=== PATIENT | male | born 1990 | race American Indian/Alaskan Native ===

== ENCOUNTER 2017-02-18 21:00 | Emergency (ER) | payer BC ==
[2017-02-18 21:14] VITALS: BP 153/90
[2017-02-18] MEDS ORDERED: Adenosine 6 MG/2 ML SDV IVPUSH ONE (21:15)
--- NOTE | 2017-02-18 21:16 | EDM.PDOC ---
ED HPI GENERAL MEDICAL PROBLEM - General Chief Complaint: Cardiovascular Problem Stated Complaint: SOB FAST HEART BEAT Time Seen by Provider: 02/18/17 21:11 Source of Information: Reports: Patient History Limitations: Reports: No Limitations - History of Present Illness INITIAL COMMENTS - FREE TEXT/NARRATIVE: 27-year-old male presents to the ED with sudden onset of initially a feeling of shortness of breath and slight heaviness in his central chest. Then was well aware that his heart was racing and skipping in the 150s. Associated S chest heaviness. No radiation to the back neck arms or shoulders. No previous similar symptoms. He denies regular alcohol use occasional half a beer. Does not take any street drugs. Does use energy drinks took to [employer] so far today. On no diabetic medications or cough syrups or decongestants. Nonsmoker. Takes no medications prescribed from Mildly dizzy and lightheaded. Onset: Today Onset Date: 02/18/17 Onset Time: 18:00 Duration: Hour(s): Location: Reports: Chest (central heaviness and palpitations. ) Quality: Reports: Other Severity: Mild (Heaviness) Improves with: Reports: None Worsens with: Reports: Heat Therapy Context: Reports: Other (Was not doing anything strenuous when symptoms developed). Denies: Activity, Exercise, Lifting, Sick Contact, Trauma Associated Symptoms: Reports: Chest Pain, Shortness of Breath, Weakness (Mild sense of weakness.). 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 [No Known Home Meds] 02/18/17 [History] Social & Family History - Tobacco Use Smoking Status *Q: Never Smoker - Alcohol Use Alcohol Use History: Yes Days Per Week of Alcohol Use: 1 - Recreational Drug Use Recreational Drug Use: No ED ROS GENERAL - Review of Systems Review Of Systems: See Below Constitutional: Reports: No Symptoms HEENT: Reports: No Symptoms Respiratory: Reports: No Symptoms Cardiovascular: Reports: No Symptoms Endocrine: Reports: No Symptoms GI/Abdominal: Reports: No Symptoms : Reports: No Symptoms Musculoskeletal: Reports: No Symptoms Skin: Reports: No Symptoms Neurological: Reports: No Symptoms Psychiatric: Reports: No Symptoms Hematologic/Lymphatic: Reports: No Symptoms Immunologic: Reports: No Symptoms ED EXAM, GENERAL - Physical Exam Exam: See Below Exam Limited By: No Limitations General Appearance: Alert, WD/WN, Anxious, Mild Distress Eye Exam: Bilateral Eye: Normal Inspection Head: Atraumatic, Normocephalic Neck: Normal Inspection, Supple, Non-Tender, Full Range of Motion Respiratory/Chest: No Respiratory Distress, Lungs Clear, Normal Breath Sounds, No Accessory Muscle Use, Chest Non-Tender Cardiovascular: Normal Peripheral Pulses, No Edema, No Gallop, No JVD, No Murmur , Tachycardia (Rate is around 150s.) Peripheral Pulses: 2+: Posterior Tibial (L), Posterior Tibial (R), Dorsalis Pedis (L), Dorsalis Pedis (R) GI/Abdominal: Normal Bowel Sounds, Soft, Non-Tender, No Organomegaly, Other (Male) Exam: No Hernia (Obese) Extremities: Normal Inspection, Normal Range of Motion, Non-Tender, No Pedal Edema, Normal Capillary Refill Neurological: Alert, Oriented, CN II-XII Intact, Normal Cognition, Normal Gait, Normal Reflexes, No Motor/Sensory Deficits Psychiatric: Normal Affect, Normal Mood Skin Exam: Warm, Dry, Intact, Normal Color, No Rash EKG INTERPRETATION EKG Date: 02/18/17 Time: 21:20 Rhythm: A-Fib (He has a narrow complex tachycardia with suggestion of underlying atrial fibrillation. There is no visible P waves) Rate (Beats/Min): 154 [place]: Normal P-Wave: Absent QRS: Other (Early R-wave transition.) ST-T: Normal QT: Prolonged (Mildly) EKG Interpretation Comments: Narrow complex tachycardia likely underlying atrial fibrillation. Course - Vital Signs Last Recorded V/S: Last Vital Signs Temp 36.3 C 02/18/17 21:05 Pulse 132 H 02/18/17 21:05 Resp 22 H 02/18/17 21:05 BP 153/90 H 02/18/17 21:05 Pulse Ox 100 02/18/17 21:05 - Orders/Labs/Meds Orders: Active Orders 24 hr Category Date Time Status Communication Order [RC] STAT Care 02/18/17 22:34 Active EKG Documentation Completion [RC] STAT Care 02/18/17 21:27 Active EKG Documentation Completion [RC] STAT Care 02/18/17 22:07 Active EKG Documentation Completion [RC] STAT Care 02/18/17 22:45 Active Chest 1V Frontal [CR] Stat Exams 02/18/17 21:27 Taken Potassium Chloride [KCl 10 MEQ in Water 100 ML] 10 meq Med 02/18/17 22:45 Active Premix Bag 1 bag IV ASDIRECTED Sodium Chloride 0.9% [Normal Saline] 1,000 ml Med 02/18/17 21:30 Active IV ASDIRECTED Medication Orders Sodium Chloride (Normal Saline) 1,000 mls @ 999 mls/hr IV ASDIRECTED MEGGAN Last Infusion: 02/18/17 22:33 Dose: 500 mls/hr Admin: 02/18/17 21:26 Dose: 100 mls/hr Potassium Chloride 10 meq/ (Premix) 100 mls @ 100 mls/hr IV ASDIRECTED MEGGAN Last Admin: 02/18/17 22:37 Dose: 100 mls/hr Labs: Laboratory Tests 02/18/17 02/18/17 02/18/17 Range/Units 21:20 21:20 21:20 WBC 12.35 H (4.23-9.07) K/mm3 RBC 5.34 (4.63-6.08) M/mm3 Hgb 16.6 (13.7-17.5) gm/L Hct 45.5 (40.1-51.0) % MCV 85.2 (79.0-92.2) fl MCH 31.1 (25.7-32.2) pg MCHC 36.5 H (32.2-35.5) g/dl RDW Std Deviation 37.7 (35.1-43.9) fL Plt Count 365 H (163-337) K/mm3 MPV 9.3 L (9.4-12.3) fl Neutrophils % (Manual) 62 H (40-60) % Band Neutrophils % 0 (0-10) % Lymphocytes % (Manual) 34 (20-40) % Atypical Lymphs % 0 % Monocytes % (Manual) 3 (2-10) % Eosinophils % (Manual) 1 (0.8-7.0) % Basophils % (Manual) 0 L (0.2-1.2) Platelet Estimate Adequate RBC Morph Comment Normal PT 9.6 (8.0-13.0) SECONDS INR 0.89 D-Dimer, Quantitative (0.19-0.59) mg/L Sodium 140 (136-145) mEq/L Potassium 3.0 L (3.5-5.1) mEq/L Chloride 102 (98-107) mEq/L Carbon Dioxide 24 (21-32) mEq/L Anion Gap 17.0 H (5-15) BUN 18 (7-18) mg/dL Creatinine 1.2 (0.7-1.3) mg/dL Est Cr Clr Drug Dosing 105.42 mL/min Estimated GFR (MDRD) > 60 (>60) mL/min BUN/Creatinine Ratio 15.0 (14-18) Glucose 121 H (74-106) mg/dL Calcium 9.0 (8.5-10.1) mg/dL Magnesium 1.9 (1.8-2.4) mg/dl Total Bilirubin 0.3 (0.2-1.0) mg/dL AST 26 (15-37) U/L ALT 43 (16-63) U/L Alkaline Phosphatase 85 (46-116) U/L CK-MB (CK-2) 3.7 H (0-3.6) ng/ml Troponin I < 0.017 (0.00-0.056) ng/mL Total Protein 8.4 H (6.4-8.2) g/dl Albumin 4.4 (3.4-5.0) g/dl Globulin 4.0 gm/dL Albumin/Globulin Ratio 1.1 (1-2) 02/18/17 Range/Units 21:20 WBC (4.23-9.07) K/mm3 RBC (4.63-6.08) M/mm3 Hgb (13.7-17.5) gm/L Hct (40.1-51.0) % MCV (79.0-92.2) fl MCH (25.7-32.2) pg MCHC (32.2-35.5) g/dl RDW Std Deviation (35.1-43.9) fL Plt Count (163-337) K/mm3 MPV (9.4-12.3) fl Neutrophils % (Manual) (40-60) % Band Neutrophils % (0-10) % Lymphocytes % (Manual) (20-40) % Atypical Lymphs % % Monocytes % (Manual) (2-10) % Eosinophils % (Manual) (0.8-7.0) % Basophils % (Manual) (0.2-1.2) Platelet Estimate RBC Morph Comment PT (8.0-13.0) SECONDS INR D-Dimer, Quantitative < 0.19 L (0.19-0.59) mg/L Sodium (136-145) mEq/L Potassium (3.5-5.1) mEq/L Chloride (98-107) mEq/L Carbon Dioxide (21-32) mEq/L Anion Gap (5-15) BUN (7-18) mg/dL Creatinine (0.7-1.3) mg/dL Est Cr Clr Drug Dosing mL/min Estimated GFR (MDRD) (>60) mL/min BUN/Creatinine Ratio (14-18) Glucose (74-106) mg/dL Calcium (8.5-10.1) mg/dL Magnesium (1.8-2.4) mg/dl Total Bilirubin (0.2-1.0) mg/dL AST (15-37) U/L ALT (16-63) U/L Alkaline Phosphatase (46-116) U/L CK-MB (CK-2) (0-3.6) ng/ml Troponin I (0.00-0.056) ng/mL Total Protein (6.4-8.2) g/dl Albumin (3.4-5.0) g/dl Globulin gm/dL Albumin/Globulin Ratio (1-2) Meds: Medications Generic Name Dose Route Start Last Admin Trade Name Freq PRN Reason Stop Dose Admin Sodium Chloride 1,000 mls @ 999 mls/hr 02/18/17 21:30 02/18/17 22:33 Normal Saline IV 500 mls/hr ASDIRECTED MEGGAN Infusion Potassium Chloride 10 meq/ 100 mls @ 100 mls/hr 02/18/17 22:45 02/18/17 22:37 Premix IV 100 mls/hr ASDIRECTED MEGGAN Administration Discontinued Medications Generic Name Dose Route Start Last Admin Trade Name Freq PRN Reason Stop Dose Admin Adenosine 6 mg 02/18/17 21:15 02/18/17 21:22 Adenocard IVPUSH 02/18/17 21:16 6 mg NOW ONE Administration Adenosine Confirm 02/18/17 21:17 02/18/17 21:28 Adenocard Administered 02/18/17 21:18 Not Given Dose 6 mg .ROUTE .STK-MED ONE Adenosine 12 mg 02/18/17 21:27 02/18/17 21:25 Adenocard IVPUSH 02/18/17 21:28 12 mg NOW ONE Administration Diltiazem HCl 10 mg 02/18/17 21:28 02/18/17 21:29 Diltiazem IVPUSH 02/18/17 21:29 10 mg ONETIME ONE Administration Diltiazem HCl Confirm 02/18/17 21:30 02/18/17 21:43 Diltiazem Administered 02/18/17 21:31 Not Given Dose 125 mg .ROUTE .STK-MED ONE Diltiazem HCl 10 mg 02/18/17 21:48 02/18/17 21:57 Diltiazem IVPUSH 02/18/17 21:49 10 mg ONETIME ONE Administration Diltiazem HCl 10 mg 02/18/17 22:16 02/18/17 22:21 Diltiazem IVPUSH 02/18/17 22:17 10 mg ONETIME ONE Administration Diltiazem HCl 125 mg/ Sodium 125 mls @ 10 mls/hr 02/18/17 21:30 02/18/17 22: 19 Chloride IV 10 mg/hr ASDIRECTED MEGGAN 10 mls/hr 10 MG/HR Infusion Ibutilide Fumarate 1 mg/ 60 mls @ 300 mls/hr 02/18/17 21:51 02/18/17 22:00 Sodium Chloride IV 02/18/17 22:00 300 mls/hr ONETIME ONE Administration - Radiology Interpretation Free Text/Narrative:: 27-year-old male presents to the ED with awareness of palpitations an hour and a half ago and some shortness of breath over the last 3 hours. Associated mild heaviness in his central chest. He is hyperventilating at the time of initial exam with numbness and tingling in his paresthesias in his hands and periorally. Post nose previous similar symptoms. Is not using any street drugs or stimulants other than taking 2 rockstar drinks today. Does not smoke cigarettes and rarely uses alcohol. ECG shows a narrow complex tachycardia with early R-wave transition. There is a few breaks to suggest underlying atrial fibrillation. No previous similar problems. Plan again his card 6 mg then to 12 mg IV were given they did not change his rhythm or rate. Will be given Cardizem 10 mg IV bolus and then start a drip at 10 mg per hour. - Re-Assessments/Exams Free Text/Narrative Re-Assessment/Exam: 02/18/17 21:46 heart rate has slowed down into the 130s and as low as 103 at times. BP is elevated 160 01/21/05. Monitor does reveal atrial fibrillation is the underlying rhythm. Routine labs have been ordered as well as a portable chest x-ray. Will repeat Cardizem 10 mg IV bolus. 02/18/17 22:17 patient is completed the first dose of Corvert 1 mg intravenously over 15 minutes. Resume drip will be restarted at 10 mg per hour. His rate is in the 125-135 range I will therefore give another 10 mg IV bolus of Cardizem as well. Plan will be to mix up the second dose of Corvert 1 mg to be given over 15 minutes in 15 minutes time. Failing this I will discuss the options with the patient about coming into the hospital for rate control with Cardizem alone versus cardioversion. Second ECG reveals atrial fibrillation with a rate of 1 35/m. There is a diffuse early repolarization pattern as well. Chest x-ray reveals a elevation of the right hemidiaphragm. There is diffuse vascular congestion cardiac silhouette is upper limits of normal in size. 02/18/17 22:33 patient is converted back to sinus rhythm about 5 minutes ago. Is currently in the 95 range. Blood pressures coming down to 139/90. Plan will be to leave him on a Cardizem drip at 10 mg per hour for an hour health management. His potassium came back low at 3.0. Anion gap came back elevated at 17.0 . Therefore IV will be open to full. He will also receive 10 mg potassium IV over the next half hour. Comes down to decision whether or not to treat him with medication orally long-term basis to prevent recurrence of atrial fibrillation as the low potassium and metabolic acidosis may have contributed to heart irritability. I favor and adopt a wait and see approach in this regard. No d-dimer was negative as well as cardiac markers were negative. No other abnormalities were appreciated on his lab work other than a mildly elevated white count at 12.35 which I believe is a stress response. D-dimer was also normal at less than 0.19. 02/18/17 22:46 30 ECG reveals sinus rhythm at 90/m. There is a diffuse early repolarization pattern. QT is minimally prolonged at 373. No signs of ischemia are evident. Patient is feeling much improved. 02/18/17 22:57 I will discontinue the Cardizem drip at this time. 02/19/17 00:00 discharged home on no medications. Patient advised to abstain from rockstar use. Must stay hydrated especially during the summer months with Gatorade or Powerade which should maintain his serum potassium levels. I suspect he has mild hypertension which may be continuing to dilatation of the left atrium and making it more irritable. I've asked him to have his blood pressure checked on a fairly regular basis to see if he ED needs medication. His size is contributing to his hypertension. At this time will adopt a wait and see approach with no medication to prevent recurrence of atrial fibrillation at this time since her many factors that may have contributed to the development of symptoms today and otherwise he will be stuck on medication for probably the rest of his life otherwise. Departure - Departure Time of Disposition: 23:47 Disposition: Home, Self-Care 01 Condition: Fair Clinical Impression: New onset atrial fibrillation Instructions: Atrial Fibrillation, [id number] Referrals: PCP,None [Primary Care Provider] - Forms: ED Department Discharge Additional Instructions: Evaluation in the emergency department tonight in regards to palpitations and rapid irregular heart rate into the 170s. Associated heaviness in the central chest and shortness of breath. Medications given in the ED slow the heart down enough to confirm that you're in atrial fibrillation which is a irregularity of heartbeat coming from the upper chambers of the heart. Because of this irritability may been the metabolic acidosis that you were found to be volume depleted and also low on potassium. The combination of these 2 may well of contributed to the irritability of the upper chambers of the heart and created this rhythm. However I it is strongly suspect you may have similar problems with this in the future. Time I would adopt a wait and see approach without the introduction of medication on daily basis to try and prevent recurrence of atrial fibrillation. Of course return to the ED if similar problems occur. Try maintain hydration by at least a Gatorade or 2 per day particularly during the summer months in combination with other juices and water. Alcohol tends to lower the serum potassium level so be careful when you drink more than 3 drinks of alcohol at a time. Blood pressure was elevated during her stay in the ED and I would suggest having it checked periodically either at the clinic or when you enter a pharmacy write down the number after having a blood pressure check just wants not repeatedly as the numbers will tend to be higher if you tend to repeat the blood pressure 1 time after another. I deal of blood pressure for your age is under 135 on the top and under 85 and the bottom. If the numbers remain higher than this then blood pressure medication may be indicated as high blood pressure is 1 of the contributing factors to atrial fibrillation development. I would also suggest no further use of energy drinks such as [employer] as the stimulants in them may well contribute to the development of atrial fibrillation. - My Orders Last 24 Hours: My Active Orders 02/18/17 21:27 EKG Documentation Completion [RC] STAT Chest 1V Frontal [CR] Stat 02/18/17 21:30 Sodium Chloride 0.9% [Normal Saline] 1,000 ml IV ASDIRECTED 02/18/17 22:07 EKG Documentation Completion [RC] STAT 02/18/17 22:34 Communication Order [RC] STAT 02/18/17 22:45 EKG Documentation Completion [RC] STAT Potassium Chloride [KCl 10 MEQ in Water 100 ML] 10 meq Premix Bag 1 bag IV ASDIRECTED - Assessment/Plan Last 24 Hours: My Active Orders 02/18/17 21:27 EKG Documentation Completion [RC] STAT Chest 1V Frontal [CR] Stat 02/18/17 21:30 Sodium Chloride 0.9% [Normal Saline] 1,000 ml IV ASDIRECTED 02/18/17 22:07 EKG Documentation Completion [RC] STAT 02/18/17 22:34 Communication Order [RC] STAT 02/18/17 22:45 EKG Documentation Completion [RC] STAT Potassium Chloride [KCl 10 MEQ in Water 100 ML] 10 meq Premix Bag 1 bag IV ASDIRECTED
[2017-02-18] MEDS ORDERED: Adenosine 6 MG/2 ML SDV ONE (21:17)
[2017-02-18] MEDS ORDERED: Adenosine 12 MG/4 ML SDV IVPUSH ONE (21:27)
[2017-02-18] MEDS ORDERED: Diltiazem 25 MG/5 ML SDV IVPUSH ONE ×3 (21:28→22:16)
[2017-02-18] MEDS ORDERED: Sodium Chloride 0.9% 1,000 ML IV SCH (21:30)
[2017-02-18] MEDS ORDERED: Diltiazem 125 MG in Sodium Chloride 0.9% 100 ML IV SCH (21:30)
[2017-02-18] MEDS ORDERED: Diltiazem 125 MG/25 ML SDV ONE (21:30)
[2017-02-18] MEDS ORDERED: Potassium Chloride 10 MEQ in Premix Bag 1 BAG IV SCH (22:45)
--- NOTE | 2017-02-19 08:50 | CR ---
Chest: Portable view of the chest was obtained. Comparison: No previous study. Heart size and mediastinum are normal. Lungs are clear. Small portion of the lateral costophrenic angle was not included. Bony structures are grossly intact. Impression: 1. Nothing acute is appreciated on portable chest x-ray. Diagnostic code #1
== END 2017-02-19 | disposition home or self-care (01) ==
LOC: JD.ED 21:00
DX: I48.91 Unspecified atrial fibrillation (principal)
CPT/HCPCS: 36415; 71010; 80053; 82553; 83735; 84484; 85025; 85379; 85610; 93005; 96361; 96365; 96375; 96376; 99285; A9270; J0153; J1742; J3480; J7030; J7040; J7050; J3490